=== PATIENT | female | born 1955 | race Caucasian/White ===

== ENCOUNTER 2018-07-15 14:36 | Emergency (ER) | payer BC ==
--- OUTSIDE RECORDS SUMMARY | 2018-07-15 14:48 | XMS REPORT | Continuity of Care Document ---
:1955 External Reference #:[id number] Author Name Sonia Hughes M.D. Address [address] [place] [address] Care Team Providers Name Role Phone Marii Maxwell MD Care Team Information Office Clinician Unavailable Marii Maxwell MD Primary Care Physician Unavailable Payers Date Identification Numbers Payment Provider Subscriber Policy Number: [id number] [facility] Ursula Garcias PayID: [id number] [address] [place] [address] Advance Directives Description No Information Available Problems Date Description Provider Status Onset: 04/21/2018 Hyperlipidemia Sonia Hughes M.D. 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 Family History Date Family Member(s) Observation Comments Father Renal Failure Syndrome Father Diabetes Mother Diabetes Mother Cervical Cancer Mother Breast Cancer Social History Type Date Description Comments Sex Unknown Marital Status Lives With Occupation Regulatory Compliance Engineer Occupation Retired Tobacco Use Start: Unknown Never Smoked Cigarettes 10/24/17 Tobacco Use Start: Unknown Never Smoked Cigars Tobacco Use Start: Unknown Never Smoked A Pipe ETOH Use Occasionally consumes alcohol Tobacco Use Start: Unknown Patient has never smoked Recreational Drug Use Denies Drug Use Smoking Status Reviewed: 06/19/18 Patient has never smoked Allergies, Adverse Reactions, Alerts Description No Known Drug Allergies Medications Medication Date Status Form Strength Qnty SIG Indications Ordering Provider Hydrochlorothiazid Active Tablets 25mg I tablet by Hans, e /0000 mouth qday MD Marii Spironolactone Active Tablets 50mg 1 tablet by Hans, /0000 mouth qday MD Marii Folic Acid Active Tablets 1mg 1 tablet by Mcilvain, /0000 mouth qday [facility] Mycophenolate Active Tablets 500mg 1 tablet by Mcilvain, Mofetil /0000 mouth at 2 Lexy, am and 1 pm [facility] Sumatriptan Active Tablets 50mg As needed Digiovann Succinate /0000 for a, migraines Ewelina J, [employer] Diltiazem HCL ER Active Caps ER 180mg I tablet by Digiovann Coated Beads /0000 24HR mouth qday a, Ewelina J, [employer] Metoprolol Active Tablets 25mg 1 tablet by Hans, Succinate ER /0000 ER 24HR mouth qdjana Colvin MD Vitamin Deficiency Active Kit 1000mcg/M 1ml every Unknown Injectable /0000 L month System-B12 Nabumetone Active Tablets 750mg take 1 Unknown /0000 tablet twice a day with food as needed for pain One Daily For Active Tablets 1 by mouth Unknown Women /0000 every day Caltrate 600+D Active Tablets 600-800mg 1 by mouth Unknown /0000 -Unit twice a day Vitamin D3 Maximum Active Capsules 2000Unit 1 a day Unknown Strength /0000 Vitamin C Active Tablets 1000mg 1 by mouth Unknown /0000 every day Aspirin 81 Low Active Chewtabs 81mg 1 tablet by Unknown Dose /0000 mouth qday Levothyroxine Active Tablets 175mcg Hans, Sodium /0000 MD Marii Hydroxychloroquine Active Tablets 200mg Mcilvain, Sulfate / Lexy [facility] Azithromycin Hx Tablets 250mg Follow Digiovann /0000 instruction a, - s on pack Mian 06/27 MD Zelda Benzonatate Hx Capsules 200mg prn Digiovann /0000 a, - Mian 06/27 MD Zelda Levothyroxine Hx Tablets 75mcg Take 175mg Hans, Sodium /0000 by mouth q MD Marii - day 06/27 Levothyroxine Hx Tablets 175mcg Hans, Sodium /0000 MD Marii - 06/27 Immunizations Description No Information Available Vital Signs Date Vital Result Comment 06/27/2018 11:14am BP Systolic 114 mmHg BP Diastolic 75 mmHg Body Temperature 97.1 F Heart Rate 67 /min Respiratory Rate 12 /min Height 62 inches 5'2" Weight 190.50 lb BMI (Body Mass Index) 34.8 kg/m2 BSA (Body Surface Area) 1.87 m2 Norris body weight in kilograms 50 kg O2 % BldC Oximetry 96 % Ra Pain Level 0 04/25/2018 10:08am Body Temperature 98.3 F Heart Rate 86 /min Respiratory Rate 16 /min O2 % BldC Oximetry 96 % Pain Level 0 Results Description No Information Available Procedures Date Code Description Status 02/23/2018 66251415 Colonoscopy Completed 12/04/2015 43293 Echocardiogram Complete Completed 12/12/2014 15762 Echocardiogram Complete Completed 2011 69876 Echocardiogram Complete Completed 04/18/2011 13156332 Colonoscopy Completed Encounters Type Date Location Provider Dx Diagnosis Office Visit 06/27/2018 Urology Travis Matt, N28.1 Cyst of kidney, 11:00a [place] acquired Office Visit 04/25/2018 Urology Sonia Hughes N28.1 Cyst of kidney, 9:45a Xavi acquired Plan of Treatment Future Appointment(s):06/28/2019 10:00 am - Sonia Hughes M.D. at [id number] - Travis Matt, PAN28.1 Cyst of kidney, acquiredComments:CT of the abdomen and pelvis are reviewed. This shows a stable Bosniak 2F renal cyst. Only a couplemillimeters larger from the CAT scan in 2011. Patient is reassured. She appreciates the importanceof follow-up and will follow up with an ultrasound in a year. Any gross hematuria or flank pain should warrant an immediate call and appointment
[2018-07-15 16:04] VITALS: BP 125/74
--- NOTE | 2018-07-15 16:14 | UC ---
General HPI - HPI Summary HPI Summary: 1 week hx of worsening nasal congestion, cough and chest congestion. occasional wheezing. no fever, asthma or copd. takes immune suppressive medications for Lupus. now ears and throat hurt. states pcp tx's with zpak which works well. - History of Current Complaint Chief Complaint: UCGeneralIllness Stated Complaint: UPPER RESPITORY Time Seen by Provider: 07/15/18 16:01 Hx Obtained From: Patient Hx Last Menstrual Period: N/A Pain Intensity: 2 Associated Signs & Symptoms: Negative: Chest Pain - Allergy/Home Medications Allergies/Adverse Reactions: Allergies Allergy/AdvReac Type Severity Reaction Status Date / Time No Known Allergies Allergy Verified 07/15/18 15:52 Home Medications: Home Medications Magnesium 1 tab PO DAILY 07/15/18 [History Confirmed 07/15/18] Pseudoephedrine TAB* [Sudafed TAB*] 30 mg PO Q6H PRN 07/15/18 [History Confirmed 07/15/18] Vitamin B2 1 tab PO DAILY 07/15/18 [History Confirmed 07/15/18] guaiFENesin ER TAB [Mucinex*] 600 mg PO BID PRN 07/15/18 [History Confirmed ] PMH/Surg Hx/FS Hx/Imm Hx - Additional Past Medical History Additional PMH: Lupus Endocrine History: Thyroid Disease Neurological History: Migraine - Surgical History Surgical History: Yes Surgery Procedure, Year, and Place: c-cection X2. MOLE REMOVED FROM WRIST. TEAR DUCT IMPLANT FOR DRY EYE-PLASTIC PUNCTUAL PLUG - Family History Known Family History: Positive: Diabetes - Social History Lives: With Family Alcohol Use: Rare Substance Use Type: None Smoking Status (MU): Never Smoked Tobacco Review of Systems All Other Systems Reviewed And Are Negative: Yes ENT: Positive: Sore Throat, Ear Ache, Sinus Congestion Respiratory: Positive: Cough Physical Exam Triage Information Reviewed: Yes Appearance: Well-Appearing Vital Signs: Initial Vital Signs Temp 97.5 F 07/15/18 16:00 Pulse 71 07/15/18 16:00 Resp 18 07/15/18 16:00 BP 125/74 07/15/18 16:00 Pulse Ox 100 07/15/18 16:00 Vital Signs Reviewed: Yes Eyes: Positive: Conjunctiva Clear ENT: Positive: Nasal congestion, Nasal drainage - clear, TMs normal. Negative: Sinus tenderness Neck: Positive: Supple, Nontender, No Lymphadenopathy Respiratory: Positive: Lungs clear, No respiratory distress, Decreased breath sounds - slight, Other: - NPC. Negative: Crackles, Rhonchi, Wheezing Cardiovascular: Positive: RRR, No Murmur Abdomen Description: Positive: Nontender, No Organomegaly, Soft Bowel Sounds: Positive: Present Musculoskeletal: Positive: ROM Intact Neurological: Positive: Alert Psychological: Positive: Age Appropriate Behavior Skin Exam: Normal Course/Dx - Differential Dx - Multi-Symptom Differential Diagnoses: Other - no concern for pneumonia or OM. pt on chronic immune suppression medications thus will tx with an antibiotic. Pt states her pCP uses a zpak that seems to work well for her. - Diagnoses Provider Diagnosis: URI (upper respiratory infection), Bronchitis Discharge - Sign-Out/Discharge Documenting (check all that apply): Patient Departure All imaging exams completed and their final reports reviewed: No Studies - Discharge Plan Condition: Stable Disposition: HOME Prescriptions: Albuterol HFA INHALER* [Ventolin HFA Inhaler*] 2 puff INH Q6H #1 mdi Azithromycin TAB* [Zithromax TAB (Z-ALIRIO) 250 mg #6 tabs] 2 tab PO .TODAY, THEN 1 DAILY #1 alirio Patient Education Materials: Upper Respiratory Infection (DC), Acute Bronchitis (ED) Referrals: Marii Maxwell MD [Primary Care Provider] - 7 Days - Billing Disposition and Condition Condition: STABLE Disposition: Home - Attestation Statements Provider Attestation: I was available for consult. This patient was seen by the KRYSTIAN. The patient was not presented to, seen by, or examined by me. -Luis A
== END 2018-07-15 16:22 | disposition home or self-care (01) ==
LOC: UCCORT 14:36
DX: J06.9 Acute upper respiratory infection, unspecified (principal); J40 Bronchitis, not specified as acute or chronic; M32.9 Systemic lupus erythematosus, unspecified
CPT/HCPCS: 99212; G0463